=== PATIENT | male | born 1980 | race Caucasian/White ===

== ENCOUNTER 2017-04-21 09:35 | Emergency (ER) | payer OTHER ==
[~2017-04-21] VITALS: Ht 165.1 cm; Wt 89.4 kg
[~2017-04-21 09:35] MED LIST: ALBUTEROL0.09 MG/A2 INH; AMOXICILLIN500 M3 PO; CEPHALEXIN500 M1 PO; CORTISPORIN SUS10 ML OT; DARVOCET N 1001 TAB PO; DELTASONE20 M1 PO; HYDROCODONE BIT1 T11 PO; JOCK ITCH14.2 GM TP; MEDROL DOSEPAK4 MG PO; NORCO 325 MG-51 TAB PO; NORFLEX100 MG PO; PROAIR HFA8.5 GM INH; ROBITUSSIN AC 110 ML PO; TRAMADOL HCL50 MG PO; ZITHROMAX Z PA250 MG PO
[2017-04-21] MEDS ORDERED: TAMIFLU 75MG CA75 MG PO (10:19)
== END 2017-04-21 11:46 | disposition home or self-care (01) ==
LOC: ED 09:35
DX: J09.X2 Influenza due to identified novel influenza A virus with other respiratory manifestations (principal); F17.200 Nicotine dependence, unspecified, uncomplicated; F10.10 Alcohol abuse, uncomplicated; Z88.6 Allergy status to analgesic agent

== ENCOUNTER 2017-07-26 16:29 | Emergency (ER) | payer OTHER ==
[~2017-07-26] VITALS: Wt 89.4 kg
[~2017-07-26 16:29] MED LIST changes: +TAMIFLU 75MG CA75 MG PO
[2017-07-26] MEDS ORDERED: FLONASE ALLERG9.9 ML NAS (16:47)
[2017-07-26] MEDS ORDERED: PENICILLIN VK500 MG PO (16:47)
[2017-07-26] MEDS ORDERED: PREDNISONE10 MG PO (16:47)
== END 2017-07-26 16:51 | disposition home or self-care (01) ==
LOC: ED 16:29
DX: J01.90 Acute sinusitis, unspecified (principal); R03.0 Elevated blood-pressure reading, without diagnosis of hypertension; K08.89 Other specified disorders of teeth and supporting structures; F17.200 Nicotine dependence, unspecified, uncomplicated; F10.10 Alcohol abuse, uncomplicated; Z88.6 Allergy status to analgesic agent

== ENCOUNTER 2017-10-19 22:36 | Emergency (ER) | payer OTHER ==
[~2017-10-19] VITALS: Ht 166.3 cm; Wt 89.5 kg
[~2017-10-19 22:36] MED LIST changes: +FLONASE ALLERG9.9 ML NAS; +PENICILLIN VK500 MG PO; +PREDNISONE10 MG PO
[2017-10-19 23:19] LABS: BILIRUBIN NEGATIVE (NEGATIVE); BLOOD NEGATIVE (NEGATIVE); CLARITY CLOUDY (CLEAR); COLOR YELLOW (YELLOW); GLUCOSE NEGATIVE (NEGATIVE); KETONE NEGATIVE (NEGATIVE); LEUKO ESTERASE NEGATIVE (NEGATIVE); NITRITE NEGATIVE (NEGATIVE); UROBILINOGEN 0.2 E.U./dl (0.2-1.0)
[2017-10-19 23:20] LABS: BASO # 0.1 10*3/uL (0.0-0.1); BASO % 0.5 % (0.0-1.0); EOS # 0.2 10*3/uL (0.0-0.4); EOS % 1.5 % (1.0-4.0); HEMATOCRIT 43.6 % (42.0-52.0); HEMOGLOBIN 15.5 g/dl (14.0-18.0); LYMPH # 4.1 10*3/uL (1.3-4.4); LYMPH % 25.6 % (27.0-41.0); MEAN CELL VOLUME 88.8 fl (80.0-94.0); MEAN CORPUSCULAR HGB 31.6 pg (27.0-31.0); MEAN CORPUSCULAR HGB CONC 35.6 g/dl (33.0-37.0); MEAN PLATELET VOLUME 10.1 fl (9.6-12.3); MONO # 1.5 10*3/uL (0.1-1.0); MONO % 9.2 % (3.0-9.0); NEUT # 9.9 10*3/uL (2.3-7.9); NEUT % 62.8 % (47.0-73.0); PLATELET COUNT AUTOMATED 218 10*3/uL (130-400); RED BLOOD COUNT 4.91 10*6/uL (4.50-5.90); RED CELL DISTRI WIDTH 12.7 % (0-14.5); WHITE BLOOD COUNT 15.8 10*3/uL (4.8-10.8)
[2017-10-19 23:36] LABS: ALKALINE PHOSPHATASE 95 U/L (45-117); BUN 15 mg/dl (7-24); CHLORIDE 104 mmol/L (98-107); CREATININE 1.16 mg/dL (0.70-1.30); SGOT/AST 60 IU/L (3-35); SGPT/ALT 69 U/L (12-78); SODIUM 139 mmol/L (136-145); TOTAL PROTEIN 8.3 gm/dL (6.4-8.2)
[2017-10-19 23:40] LABS: POTASSIUM 4.8 mmol/L (3.5-5.1)
[2017-10-19 23:42] LABS: BACTERIA 3+; CALCIUM OXALATE CRYSTALS 1+; EPITHELIAL CELLS 0-2; WBC 0-2 wbc/hpf (0-5)
[2017-10-20 02:31] LABS: URINE AMPHETAMINES < 1000 (1000ng/ml); URINE BARBITURATES < 200 (200ng/ml); URINE BENZODIAZEPINES < 200 (200ng/ml); URINE CANNABINOIDS (THC) > 50 (50ng/ml); URINE COCAINE > 300 (300ng/ml); URINE METHADONE < 300 (300ng/ml); URINE OPIATES < 300 (300ng/ml)
[2017-10-20 02:34] LABS: URINE PHENCYCLIDINE < 25 (25ng/ml)
== END 2017-10-20 04:40 | disposition short-term general hospital (02) ==
LOC: ED 22:36
PROVIDERS: Emergency Medicine
DX: N44.00 Torsion of testis, unspecified (principal); M54.5 Low back pain; Z88.6 Allergy status to analgesic agent; Z79.899 Other long term (current) drug therapy

== ENCOUNTER 2018-05-21 16:12 | Emergency (ER) | payer SELFPAY ==
[~2018-05-21] VITALS: Ht 165.1 cm; Wt 89.4 kg
--- NOTE | ~2018-05-21 | EKG ---
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
--- NOTE | ~2018-05-21 | EKG ---
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
[2018-05-21 16:45] LABS: BASO # 0.1 10*3/uL (0.0-0.1); EOS # 0.1 10*3/uL (0.0-0.4); EOS % 1.4 % (1.0-4.0); HEMATOCRIT 47.2 % (42.0-52.0); HEMOGLOBIN 16.4 g/dl (14.0-18.0); LYMPH # 1.6 10*3/uL (1.3-4.4); LYMPH % 18.8 % (27.0-41.0); MEAN CELL VOLUME 88.9 fl (80.0-94.0); MEAN CORPUSCULAR HGB 30.9 pg (27.0-31.0); MEAN CORPUSCULAR HGB CONC 34.7 g/dl (33.0-37.0); MEAN PLATELET VOLUME 9.4 fl (9.6-12.3); MONO # 1.5 10*3/uL (0.1-1.0); MONO % 17.1 % (3.0-9.0); NEUT # 5.3 10*3/uL (2.3-7.9); NEUT % 61.2 % (47.0-73.0); PLATELET COUNT AUTOMATED 225 10*3/uL (130-400); RED BLOOD COUNT 5.31 10*6/uL (4.50-5.90); RED CELL DISTRI WIDTH 13.2 % (0-14.5); WHITE BLOOD COUNT 8.6 10*3/uL (4.8-10.8)
[2018-05-21 16:58] LABS: ACT PARTIAL THROMBO TIME 23.4 SECONDS (20.8-31.5)
[2018-05-21 17:11] LABS: ALBUMIN 4.1 gm/dl (3.1-4.5); ALKALINE PHOSPHATASE 105 U/L (45-117); BUN 12 mg/dl (7-24); CHLORIDE 103 mmol/L (98-107); POTASSIUM 3.8 mmol/L (3.5-5.1); SGOT/AST 46 IU/L (3-35); SGPT/ALT 70 U/L (12-78); SODIUM 137 mmol/L (136-145); TOTAL PROTEIN 8.4 gm/dL (6.4-8.2)
[2018-05-21 17:12] LABS: TROPONIN I < 0.015 ng/ml (<0.045)
[2018-05-21] MEDS ORDERED: ANAPROX DS550 MG PO (20:25)
[2018-05-21] MEDS ORDERED: Motrin,Rufen800 MG PO ×2 (20:34→20:35)
[2018-05-21] MEDS ORDERED: PROAIR HFA8.5 GM INH ×2 (20:34→20:35)
== END 2018-05-21 21:00 | disposition home or self-care (01) ==
LOC: ED 16:12
PROVIDERS: Physician Assistant
DX: R09.1 Pleurisy (principal); R07.89 Other chest pain; F17.200 Nicotine dependence, unspecified, uncomplicated; Z79.899 Other long term (current) drug therapy; Z88.6 Allergy status to analgesic agent

== ENCOUNTER → 2018-06-20 | Outpatient (CLI) | payer SELFPAY ==
[~2018-06-20] MED LIST changes: +ANAPROX DS550 MG PO; +Motrin,Rufen800 MG PO
== END | disposition home or self-care (01) ==
LOC: RESCLI 13:31
DX: E66.09 Other obesity due to excess calories (principal); J45.909 Unspecified asthma, uncomplicated; R68.89 Other general symptoms and signs; N50.819 Testicular pain, unspecified; F17.200 Nicotine dependence, unspecified, uncomplicated; Z71.6 Tobacco abuse counseling; Z68.35 Body mass index [BMI] 35.0-35.9, adult; Z88.8 Allergy status to other drugs, medicaments and biological substances; Z79.899 Other long term (current) drug therapy

== ENCOUNTER → 2019-02-26 | Outpatient (CLI) | payer SELFPAY ==
[2019-02-26 16:11] LABS: HEMATOCRIT 45.9 % (42.0-52.0); HEMOGLOBIN 15.7 g/dl (14.0-18.0); MEAN CELL VOLUME 89.8 fl (80.0-94.0); MEAN CORPUSCULAR HGB 30.7 pg (27.0-31.0); MEAN CORPUSCULAR HGB CONC 34.2 g/dl (33.0-37.0); MEAN PLATELET VOLUME 9.2 fl (9.6-12.3); PLATELET COUNT AUTOMATED 249 10*3/uL (130-400); RED BLOOD COUNT 5.11 10*6/uL (4.50-5.90); RED CELL DISTRI WIDTH 12.7 % (0-14.5); WHITE BLOOD COUNT 8.4 10*3/uL (4.8-10.8)
[2019-02-26 16:19] LABS: BUN 14 mg/dl (7-24); CHLORIDE 107 mmol/L (98-107); POTASSIUM 4.6 mmol/L (3.5-5.1); SODIUM 142 mmol/L (136-145)
[2019-02-26 16:22] LABS: CHOLESTEROL 183 mg/dL (<200); HDL CHOLESTEROL 29 mg/dl (40-60); LDL CHOLESTEROL 93 mg/dL (9-159); TRIGLYCERIDES 306 mg/dl (<150); VLDL CHOLESTEROL 61 mg/dL (6-40)
[2019-02-26 16:36] LABS: TOTAL CELLS COUNTED 100 #CELLS
[2019-02-26 16:37] LABS: PLATELET SUFFICIENCY NORMAL (NORMAL)
== END | disposition home or self-care (01) ==
LOC: RESCLI 00:34
PROVIDERS: Hospitalist
DX: Z13.220 Encounter for screening for lipoid disorders (principal); Z13.1 Encounter for screening for diabetes mellitus; Z71.6 Tobacco abuse counseling; J45.909 Unspecified asthma, uncomplicated; Z72.0 Tobacco use; Z68.35 Body mass index [BMI] 35.0-35.9, adult; R49.0 Dysphonia; Z79.899 Other long term (current) drug therapy

== ENCOUNTER → 2019-04-02 | Outpatient (CLI) | payer SELFPAY | END | disposition home or self-care (01) | LOC: RESCLI 00:48 | DX: J45.909 Unspecified asthma, uncomplicated (principal); E66.09 Other obesity due to excess calories; K21.9 Gastro-esophageal reflux disease without esophagitis; Z71.6 Tobacco abuse counseling; Z72.0 Tobacco use; Z79.899 Other long term (current) drug therapy ==

== ENCOUNTER → 2020-06-08 | Outpatient (CLI) | payer SELFPAY | END | disposition home or self-care (01) | LOC: RESCLI 00:41 | PROVIDERS: ATTEND Internal Medicine Nephrology | DX: J45.909 Unspecified asthma, uncomplicated (principal); K21.9 Gastro-esophageal reflux disease without esophagitis; Z72.0 Tobacco use; Z71.6 Tobacco abuse counseling; Z68.35 Body mass index [BMI] 35.0-35.9, adult; Z79.899 Other long term (current) drug therapy; Z98.890 Other specified postprocedural states ==

== ENCOUNTER 2021-01-22 17:49 | Emergency (ER) | payer SELFPAY ==
[~2021-01-22] VITALS: Wt 83.5 kg
[2021-01-22] MEDS ORDERED: PROVENTIL HFA6.7 GM INH (18:40)
[2021-01-22] MEDS ORDERED: ZITHROMAX250 MG PO (18:40)
[2021-01-22] MEDS ORDERED: PREDNISONE20 M1 PO (18:40)
== END 2021-01-22 18:45 | disposition home or self-care (01) ==
LOC: ED 17:49
DX: H66.92 Otitis media, unspecified, left ear (principal); R05.9 Cough, unspecified; Z88.6 Allergy status to analgesic agent

== ENCOUNTER 2021-04-17 12:01 | Emergency (ER) | payer SELFPAY ==
[~2021-04-17] VITALS: Ht 167.6 cm; Wt 88.5 kg
[~2021-04-17 12:01] MED LIST changes: +PREDNISONE20 M1 PO; +PROVENTIL HFA6.7 GM INH; +ZITHROMAX250 MG PO
[2021-04-17] MEDS ORDERED: HYDROCODONE-AC1 EAC1 PO (14:40)
== END 2021-04-17 14:50 | disposition home or self-care (01) ==
LOC: ED 12:01
DX: S82.839A Other fracture of upper and lower end of unspecified fibula, initial encounter for closed fracture (principal); Z88.6 Allergy status to analgesic agent; W18.39XA Other fall on same level, initial encounter; Y93.89 Activity, other specified; Y92.89 Other specified places as the place of occurrence of the external cause; Y99.8 Other external cause status

== ENCOUNTER → 2021-04-19 | Outpatient (CLI) | payer SELFPAY ==
[~2021-04-19] MED LIST changes: +HYDROCODONE-AC1 EAC1 PO
== END | disposition home or self-care (01) ==
LOC: RAD 10:28
PROVIDERS: ATTEND Orthopaedic Surgery
DX: S82.441A Displaced spiral fracture of shaft of right fibula, initial encounter for closed fracture (principal); S82.891A Other fracture of right lower leg, initial encounter for closed fracture; X58.XXXA Exposure to other specified factors, initial encounter; Y93.89 Activity, other specified; Y92.89 Other specified places as the place of occurrence of the external cause; Y99.8 Other external cause status

== ENCOUNTER → 2021-04-25 | Day surgery (SDC) | payer SELFPAY ==
[2021-04-21 10:35] VITALS: BP 140/97
[2021-04-21 12:29] LABS: BUN 17 mg/dl (7-24); CHLORIDE 103 mmol/L (98-107); CREATININE 0.81 mg/dL (0.70-1.30); POTASSIUM 3.9 mmol/L (3.5-5.1); SODIUM 136 mmol/L (136-145)
[~2021-04-25] VITALS: Ht 166.3 cm; Wt 88.5 kg
[2021-04-25 08:46] VITALS: BP 160/98
[2021-04-25 11:25] VITALS: BP 136/76
[2021-04-25 11:40] VITALS: BP 130/90
[2021-04-25 11:55] VITALS: BP 146/82
[2021-04-25 12:10] VITALS: BP 143/73
[2021-04-25 12:26] VITALS: BP 139/69
== END | disposition home or self-care (01) ==
LOC: SDC 04-21 10:15
PROVIDERS: ATTEND Orthopaedic Surgery
DX: S82.61XA Displaced fracture of lateral malleolus of right fibula, initial encounter for closed fracture (principal); S93.431A Sprain of tibiofibular ligament of right ankle, initial encounter; S93.421A Sprain of deltoid ligament of right ankle, initial encounter; K21.9 Gastro-esophageal reflux disease without esophagitis; F17.210 Nicotine dependence, cigarettes, uncomplicated; W10.9XXA Fall (on) (from) unspecified stairs and steps, initial encounter; Y93.89 Activity, other specified; Y92.099 Unspecified place in other non-institutional residence as the place of occurrence of the external cause; Y99.8 Other external cause status; Z88.6 Allergy status to analgesic agent; Z20.822 Contact with and (suspected) exposure to COVID-19

== ENCOUNTER → 2021-05-08 | Outpatient (CLI) | payer SELFPAY | END | disposition home or self-care (01) | LOC: ORTHO 00:29 | PROVIDERS: ATTEND Orthopaedic Surgery | DX: S82.61XA Displaced fracture of lateral malleolus of right fibula, initial encounter for closed fracture (principal); X58.XXXA Exposure to other specified factors, initial encounter; Y93.89 Activity, other specified; Y92.89 Other specified places as the place of occurrence of the external cause; Y99.8 Other external cause status ==

== ENCOUNTER → 2021-06-07 | Outpatient (CLI) | payer OTHER | END | disposition home or self-care (01) | LOC: ORTHO 08:47 | PROVIDERS: ATTEND Orthopaedic Surgery | DX: S82.61XD Displaced fracture of lateral malleolus of right fibula, subsequent encounter for closed fracture with routine healing (principal); X58.XXXD Exposure to other specified factors, subsequent encounter ==

== ENCOUNTER → 2021-07-19 | Outpatient (CLI) | payer OTHER | END | disposition home or self-care (01) | LOC: ORTHO 01:17 | PROVIDERS: ATTEND Orthopaedic Surgery | DX: S82.61XD Displaced fracture of lateral malleolus of right fibula, subsequent encounter for closed fracture with routine healing (principal); M77.31 Calcaneal spur, right foot; X58.XXXD Exposure to other specified factors, subsequent encounter ==

== ENCOUNTER 2021-07-25 19:21 | Emergency (ER) | payer OTHER ==
[~2021-07-25] VITALS: Ht 167.6 cm; Wt 89.4 kg
[2021-07-25] MEDS ORDERED: PENICILLIN VK500 MG PO (19:46)
== END 2021-07-25 19:56 | disposition home or self-care (01) ==
LOC: ED 19:21
DX: K04.7 Periapical abscess without sinus (principal)

== ENCOUNTER 2024-11-23 06:06 | Emergency (ER) | payer MEDICAID ==
[~2024-11-23] VITALS: Ht 165.1 cm; Wt 95.3 kg
[2024-11-23] MEDS ORDERED: PREDNISONE20 M1 PO (07:44)
[2024-11-23] MEDS ORDERED: Water, Sterile 10 ML VIAL ONE (08:13)
== END 2024-11-23 08:06 | disposition home or self-care (01) ==
LOC: ED 06:06
DX: M17.12 Unilateral primary osteoarthritis, left knee (principal); Z88.6 Allergy status to analgesic agent